=== PATIENT | female | born 1945 | race Caucasian/White ===

== ENCOUNTER 2017-07-21 05:45 | Inpatient (IN) | payer MEDICARE ==
[2017-07-21] MEDS ORDERED: Fentanyl 100 MCG/2 ML VIAL ONE ×2 (06:25→09:26)
[2017-07-21] MEDS ORDERED: Midazolam HCl 2 mg/2 ml Vial ONE (06:25)
[2017-07-21] MEDS ORDERED: Heparin 5,000 UNITS/ML VIAL ONE (06:27)
[2017-07-21] MEDS ORDERED: Protamine Sulfate 50 MG/5 ML VIAL ONE (06:27)
[2017-07-21] MEDS ORDERED: Levofloxacin 500 mg/D5W 100 ml Premix Bag ONE (06:29)
[2017-07-21] MEDS ORDERED: Clindamycin/D5W 900 mg/50 ml Premix Bag ONE (06:29)
[2017-07-21] MEDS ORDERED: Heparin 10,000 UNITS/1 ML VIAL ONE (06:54)
[2017-07-21] MEDS ORDERED: Glycopyrrolate 0.2 MG/ML 5 ML SYRINGE ONE (07:30)
[2017-07-21] MEDS ORDERED: ePHEDrine/0.9% NaCl/PF SYRINGE 50 mg/10 ml ONE (07:30)
[2017-07-21] MEDS ORDERED: Propofol 200 MG/20 ML VIAL ONE (07:30)
[2017-07-21] MEDS ORDERED: diphenhydrAMINE HCl 50 MG/ML 1 ML VIAL ONE (07:30)
[2017-07-21] MEDS ORDERED: Dexamethasone 20 MG/5 ML VIAL ONE (07:30)
[2017-07-21] MEDS ORDERED: Labetalol HCl 100 MG/20 ML SYR ONE (07:30)
[2017-07-21] MEDS ORDERED: Metoclopramide HCl 10 MG/2 ML VIAL ONE (07:30)
[2017-07-21] MEDS ORDERED: Lidocaine 1% PF 5 ML VIAL ONE (07:30)
[2017-07-21] MEDS ORDERED: Ondansetron HCl/PF 4 MG/2 ML Vial ONE (07:30)
[2017-07-21 09:42] LABS: #Basophils 0.1 thou/uL (0.0-0.2); #Eosinphils 0.3 thou/uL (0.0-0.7); #Lymphocytes 2.4 thou/uL (1.20-3.40); #Monocytes 0.8 thou/uL (0.11-0.59); #Neutrophils 7.9 thou/uL (1.40-6.50); %Lymphocytes 20.8 % (21.0-51.0); %Monocytes 6.9 % (0.0-10.0); Hematocrit 51.5 % (36.0-47.0); Mean Platelet Volume 9.2 fL (7.4-10.4); Red Blood Cell (RBC) Count 5.45 mill/uL (4.20-5.40); White Blood Cell (WBC) Count 11.6 thou/uL (4.8-10.8)
[2017-07-21 10:09] LABS: Anion Gap 17 mmol/L (10-20); BUN (Urea Nitrogen) 20 mg/dL (9.8-20.1); Calc. Creatinine Clearance 67 mL/min (70-130); Calcium 9.7 mg/dL (7.8-10.44); Carbon Dioxide 22 mmol/L (23-31); Chloride 105 mmol/L (98-107); Estimated GFR-MDRD 74
[2017-07-21] MEDS: Sodium Chloride 0.9% 1,000 ML IV SCH ×2 (10:10→21:04)
[2017-07-21] MEDS ORDERED: Ondansetron HCl/PF 4 MG/2 ML Vial IVP PRN (10:47)
[2017-07-21] MEDS ORDERED: HYDROcodone/Acetaminophen 5/325 mg Tablet PO PRN ×2 (10:47)
[2017-07-21] MEDS ORDERED: Acetaminophen 325 MG TAB PO PRN (10:47)
[2017-07-21] MEDS ORDERED: Fentanyl 100 MCG/2 ML VIAL SLOW IVP PRN ×2 (10:47)
[2017-07-21] MEDS ORDERED: Promethazine HCl 25 MG/ML VIAL IM PRN (10:47)
[2017-07-21] MEDS ORDERED: Phenylephrine 10 MG/NS 250 ML 250 ML IVPB PRN (10:47)
[2017-07-21] MEDS ORDERED: Nitroglycerin 50 MG/250 ML BOT 250 ML IVPB PRN (10:47)
[2017-07-21 11:12] VITALS: BMI 24.5
--- NOTE | 2017-07-21 11:13 | OP ---
DATE OF PROCEDURE: 07/21/2017 PREOPERATIVE DIAGNOSIS: Symptomatic left carotid stenosis. POSTOPERATIVE DIAGNOSIS: Symptomatic left carotid stenosis. PROCEDURE: Left carotid endarterectomy with extended patch angioplasty extending proximally down to the cervical outlet. ESTIMATED BLOOD LOSS: Less than 100. SURGEON: Dr. Akash Zuleta ANESTHESIA: General endotracheal. PROCEDURE IN DETAIL: After consent was obtained, the patient was brought to the operating room and placed in the supine position on the operating room table. Appropriate anesthetic monitor was place d and general endotracheal anesthesia induced. Head was rotated to the right and joints appropriate ly padded. The left neck was prepped and draped in usual sterile fashion. Skin incision was made a nterior to the sternocleidomastoid. Dissection down to the carotid artery was obtained with electro cautery. The facial vein branches were divided between clips and ties. The patient was systemicall y heparinized. Distal internal carotid artery was controlled with a vessel loop. Proximal internal carotid artery was controlled with a tape and Rumel tourniquet. After 3 minutes, incision was made on the common carotid artery extended through the bulb onto the i nternal carotid artery. A 10-[place] shunt was placed and antegrade flow reestablished. Enda rterectomy was begun on the common carotid artery extended through the bulb onto the distal internal carotid artery. A good tapered distal endpoint was obtained. Medial fibers were debrided. Eversi on endarterectomy was performed of the external carotid artery. On inspection of the proximal porti on of the endarterectomy, the plaque was very thick and the shunt was very tight within the common c arotid artery. The skin incision was extended proximally twice all the way down to the sternoclavic ular junction. The proximal control point was moved almost to the thoracic outlet. The endarterect gael was extended proximally down to where the plaque ended. Both bovine pericardial patches were th en sewn in place with running 6-0 Prolene suture. The full length of the carotid patch was used. P rior to completion of the patch suture line, the shunt was clamped and removed. Arteries were backb led into the operative field and flushed with heparinized saline. Patch suture line was completed. Antegrade flow was reestablished up the external carotid artery. Ten seconds later it was reestabl ished at the internal carotid artery. Protamine was administered. Hemostasis was ensured. Wounds were copiously irrigated, closed in layers and Dermabond applied to the skin. The patient was awake xiomara, extubated, and neurologically intact in the operating room.
[2017-07-21] MEDS: Clindamycin/D5W 900 MG in Premix Bag 1 BAG IVPB SCH ×2 (13:05→17:24)
[2017-07-21] MEDS ORDERED: Atorvastatin Calcium 20 MG TAB PO SCH (21:00)
[2017-07-22] MEDS: Clindamycin/D5W 900 MG in Premix Bag 1 BAG IVPB SCH ×2 (00:49→05:27)
[2017-07-22] MEDS: Sodium Chloride 0.9% 1,000 ML IV SCH (05:28)
[2017-07-22 07:19] VITALS: TEMP 98.1
--- NOTE | 2017-07-22 07:43 | DIS ---
DIAGNOSES: Asymptomatic left carotid stenosis. PROCEDURES: Extended left carotid endarterectomy with patch angioplasty. Discharge medications are unchanged. DESCRIPTION OF HOSPITAL STAY: Ms. Gardner was admitted for elective carotid endarterectomy. She has d one well and was neurologically intact postoperatively. She is being discharged to home to follow u p with me in 2 weeks.
[2017-07-22] MEDS ORDERED: Losartan Potassium 25 MG TAB PO SCH (09:00)
[2017-07-22] MEDS ORDERED: Saccharomyces boulardii 250 MG CAP PO SCH (09:00)
[2017-07-22] MEDS ORDERED: Ascorbic Acid 500 mg Chewable Tablet PO SCH (09:00)
[2017-07-22] MEDS ORDERED: Calcium Carbonate + Vit D 1 TAB PO SCH (09:00)
== END 2017-07-22 08:15 | disposition home or self-care (01) | DRG 39 ==
LOC: SURG A 05:45 → CCU 09:32
PROVIDERS: ADMIT Thoracic Surgery (Cardiothoracic Vascular Surgery); ATTEND Thoracic Surgery (Cardiothoracic Vascular Surgery)
PROC: 03CN0ZZ Extirpation of Matter from Left External Carotid Artery, Open Approach (ICD-10-PCS; principal; 2017-07-21)
PROC: 03CJ0ZZ Extirpation of Matter from Left Common Carotid Artery, Open Approach (ICD-10-PCS; 2017-07-21)
PROC: 03CL0ZZ Extirpation of Matter from Left Internal Carotid Artery, Open Approach (ICD-10-PCS; 2017-07-21)
PROC: 03UN0KZ Supplement Left External Carotid Artery with Nonautologous Tissue Substitute, Open Approach (ICD-10-PCS; 2017-07-21)
PROC: 03UL0KZ Supplement Left Internal Carotid Artery with Nonautologous Tissue Substitute, Open Approach (ICD-10-PCS; 2017-07-21)
PROC: 03UJ0KZ Supplement Left Common Carotid Artery with Nonautologous Tissue Substitute, Open Approach (ICD-10-PCS; 2017-07-21)
DX: I65.22 Occlusion and stenosis of left carotid artery (principal); I10 Essential (primary) hypertension; Z90.710 Acquired absence of both cervix and uterus; F17.210 Nicotine dependence, cigarettes, uncomplicated; R22.2 Localized swelling, mass and lump, trunk; Z85.3 Personal history of malignant neoplasm of breast; Z88.0 Allergy status to penicillin
CPT/HCPCS: 36415; 80048; 85025; 93005; 93010; 94640; J1100; J1200; J1642; J1644; J1956; J2001; J2250; J2405; J2704; J2720; J2765; J3010; J3490; J7620

== ENCOUNTER 2018-06-10 13:59 | Outpatient (CLI) | payer MEDICARE | END 2018-06-10 14:00 | disposition home or self-care (01) | LOC: BICMAMMO 13:59 | PROVIDERS: ATTEND Internal Medicine Geriatric Medicine | DX: Z13.820 Encounter for screening for osteoporosis (principal) | CPT/HCPCS: 77063; 77067; 77080 ==

== ENCOUNTER 2019-08-26 07:15 | Outpatient (CLI) | payer MEDICARE ==
--- NOTE | 2019-08-26 09:57 | CT ---
LOW DOSE CT SCAN OF CHEST WITHOUT IV CONTRAST FOR LUNG CANCER SCREENING: Date: 08/26/19 HISTORY: Nicotine dependence. 35+ yr hx of smoking FINDINGS: There is a 1.7 cm ground-glass nodule in the right upper lobe. There are a couple of solid peripheral nodules in the left upper lobe measuring 3.0 and 2.0 mm, respe ctively. A tiny calcified granuloma is seen in the right lower lobe. There is scarring of the lung apices and the lingula. No pleural or pericardial effusions are seen. There are vascular calcifications without evidence of a neurysmal dilatation of the thoracic aorta. Degenerative changes are present in the spine. IMPRESSION: Lung-RADS Category 2 - Benign. RECOMMENDATION: Continued annual screening with LDCT in 12 months. POS: [facility]
== END 2019-08-26 07:16 | disposition home or self-care (01) ==
LOC: CT 07:15
PROVIDERS: ATTEND Family Medicine
DX: F17.210 Nicotine dependence, cigarettes, uncomplicated (principal)
CPT/HCPCS: 80061; 82306; G0297; 80053; 84443; 85025

== ENCOUNTER 2019-11-01 07:26 | Outpatient (CLI) | payer MEDICARE ==
--- NOTE | 2019-11-01 08:45 | ULT ---
SONOGRAM ABDOMINAL AORTA WITH DUPLEX EVALUATION: HISTORY: AAA screening. FINDINGS: Good color and spectral Doppler flow within the abdominal aorta. Mid abdominal aorta is 1.8 cm AP di ameter. No free fluid in the retroperitoneum. Calcification is evident within the aortic lumen. IMPRESSION: Atherosclerosis. No evidence of abdominal aortic aneurysm. POS: [facility]
== END 2019-11-01 07:27 | disposition home or self-care (01) ==
LOC: BICULT 07:26
PROVIDERS: ATTEND Family Medicine
DX: Z13.6 Encounter for screening for cardiovascular disorders (principal); I70.90 Unspecified atherosclerosis
CPT/HCPCS: 76775